=== PATIENT | male | born 1945 | race Caucasian/White ===

== ENCOUNTER 2017-12-29 12:00 | Emergency (ER) | payer MEDICARE ==
[~2017-12-29] VITALS: Ht 185.4 cm; Wt 74.8 kg
[2017-12-29 12:33] VITALS: BP 153/81
--- NOTE | 2017-12-29 13:06 | RAD ---
FINGER(S) RIGHT (hand PA and lateral, first digit oblique) INDICATION: right thumb injury, cut thumb working around the house COMPARISON: None. FINDINGS: No acute fracture or malalignment. Advanced first carpometacarpal arthrosis. Triangular fibrocartilage complex chondrocalcinosis. Bony mineralization is normal for the patient's age. No significant soft tissue abnormality. Fourth digit jewelry. No other radiopaque foreign body. IMPRESSION: 1. No acute fracture or malalignment. 2. Fourth digit jewelry. No other radiopaque foreign body. 3. Advanced first carpometacarpal arthrosis. 4. Triangular fibrocartilage complex chondrocalcinosis which can be seen with CPPD. Electronically signed by: Brando Charles MD (12/29/2017 1:03 PM) [facility]
--- NOTE | 2017-12-29 13:23 | PHYS DOC ---
Past History Past Medical History: No Pertinent History Past Surgical History: No Surgical History Smoking: Non-smoker Alcohol Use: Rarely Drug Use: None Adult General Chief Complaint Chief Complaint: FINGER INJURY HPI HPI Patient is a 72 year old right-handed male who presents with complaining of injury to right thumb. Patient states he was fixing his garage door and discussing in his right thumb laceration and bleeding of the right thumb. Patient denies other injuries and focal neuro deficit. Last tetanus immunization is unknown. Review of Systems Review of Systems Constitutional: Denies fever or chills [] Eyes: Denies change in visual acuity, redness, or eye pain [] HENT: Denies nasal congestion or sore throat [] Respiratory: Denies cough or shortness of breath [] Cardiovascular: No additional information not addressed in HPI [] GI: Denies abdominal pain, nausea, vomiting, bloody stools or diarrhea [] : Denies dysuria or hematuria [] Musculoskeletal: Denies back pain, reports joint pain [] Integument: Denies rash or skin lesions [] Neurologic: Denies headache, focal weakness or sensory changes [] Endocrine: Denies polyuria or polydipsia [] All other systems were reviewed and found to be within normal limits, except as documented in this note. Current Medications Current Medications Current Medications Medications (Trade) Dose Ordered Sig/Audrey Start Time Stop Time Status Last Admin Dose Admin Diphtheria/ Tetanus/Acell Pertussis (Boostrix) 0.5 ml ONCE ONCE 12/29/17 13:15 12/29/17 13:16 UNV Physical Exam Physical Exam Constitutional: Well developed, well nourished, mild distress, non-toxic appearance. [] HENT: Normocephalic, atraumatic. Eyes: PERRLA, EOMI, conjunctiva normal, no discharge. [] Neck: Normal range of motion, no tenderness, supple, no stridor. [] Cardiovascular:Heart rate regular rhythm, no murmur [] Lungs & Thorax: Bilateral breath sounds clear to auscultation [] Back: No tenderness, no CVA tenderness. [] Extremities: Right thumb with 1 cm longitudinal laceration of distal phalanx dorsal side with extension to need with subungual hematoma without neurovascular deficit,mild tenderness, no cyanosis, no clubbing, ROM intact, no edema. [] Neurologic: Alert and oriented X 3, normal motor function, normal sensory function, no focal deficits noted. [] Psychologic: Affect normal, judgement normal, mood normal. [] Current Patient Data Vital Signs Vital Signs Date Time Temp Pulse Resp B/P (MAP) Pulse Ox O2 Delivery O2 Flow Rate FiO2 12/29/17 12:33 98.4 68 16 98 Room Air EKG EKG [] Radiology/Procedures Radiology/[place] [address] IMAGING REPORT Signed PATIENT: VANESSA JOE ACCOUNT: [id number] : 1945 LOCATION: ER AGE: 72 SEX: M EXAM STATUS: REG ER ORD. PHYSICIAN: JULIET BRYAN MD REASON: thumb injury PROCEDURE: FINGER(S) RIGHT FINGER(S) RIGHT (hand PA and lateral, first digit oblique) INDICATION: right thumb injury, cut thumb working around the house COMPARISON: None. FINDINGS: No acute fracture or malalignment. Advanced first carpometacarpal arthrosis. Triangular fibrocartilage complex chondrocalcinosis. Bony mineralization is normal for the patient's age. No significant soft tissue abnormality. Fourth digit jewelry. No other radiopaque foreign body. IMPRESSION: 1. No acute fracture or malalignment. 2. Fourth digit jewelry. No other radiopaque foreign body. 3. Advanced first carpometacarpal arthrosis. 4. Triangular fibrocartilage complex chondrocalcinosis which can be seen with CPPD. Electronically signed by: Brando Charles MD (12/29/2017 1:03 PM) [facility] DICTATED AND SIGNED BY: BRANDO CHARLES MD DATE: 12/29/17 6128 CC: JULIET BRYAN MD; OSWALDO HENDRICKS MD ~ Course & Med Decision Making Course & Med Decision Making Pertinent Imaging studies reviewed. (See chart for details) discharge: I've spoken with the patient and/or caregivers. I've explained the patient's condition, diagnosis and treatment plan based on information available to me at this time. I've answered the patient's and/or caregivers questions and addressed any concerns. The patient and/or caregivers have a good understanding the patient's diagnosis, condition and treatment plan as can be expected at this point. Vital signs have been stabilized. The patient's condition is stable for discharge from the emergency department. The patient will pursue further outpatient evaluation with her primary care provider or other designated consulting physician as outlined in the discharge instructions. Patient and/or caregivers are agreeable to this plan of care and follow-up instructions have been explained in detail. The patient and/or caregivers have received these instructions in written format and expressed understanding of these discharge instructions. The patient and her caregivers are aware that if any significant change in condition or worsening of symptoms should prompt him to immediately return to this of the closest emergency department. If an emergent department is not readily available I would encourage him to call 911. Dragon Disclaimer Dragon Disclaimer This electronic medical record was generated, in whole or in part, using a voice recognition dictation system. Laceration Repair Lac Repair Indication: Right thumb laceration Procedure: The patient was placed in the appropriate position after cleaning the 1 cm laceration of right thumb was repaired with Dermabond and Steri-Strip, aluminium foam splint and Coban dressing was applied. Total repaired wound length: 1 cm Other Items: [OTHER ITEMS] The patient tolerated the procedure well. Complications: None. Departure Departure: Impression: Primary Impression: Laceration of right thumb Additional Impression: Subungual hematoma of finger of right hand Disposition: 01 HOME, SELF-CARE (at 1322) Condition: IMPROVED Referrals: OSWALDO HENDRICKS MD (PCP) Patient Instructions: Subungual Hematoma, Tissue Adhesive Wound Care, Tissue Adhesive Wound Care, Leyn-zo-Paht Additional Instructions: Keep wound clean and dry Follow-up with your primary care physician in 3-5 days Return to ER if not getting better Problem Qualifiers JULIET BRYAN MD Dec 29, 2017 13:23
[2017-12-29] MEDS ORDERED: DIPHTH,PERTUSS(ACELL),TET TOX 0.5 ML DISP.SYRIN. VAX IM ONE (13:45)
== END 2017-12-29 13:40 | disposition home or self-care (01) ==
LOC: ER 12:00
DX: S61.111A Laceration without foreign body of right thumb with damage to nail, initial encounter (principal); W26.8XXA Contact with other sharp object(s), not elsewhere classified, initial encounter; Y93.89 Activity, other specified; Y92.59 Other trade areas as the place of occurrence of the external cause; Y99.8 Other external cause status
CPT/HCPCS: 12001; 73140; 90471; 90715; 99284-25